=== PATIENT | male | born 1990 | race Two or more races ===

== ENCOUNTER 2024-12-12 07:04 | Emergency (ER) | payer MEDICAID, SELFPAY ==
[2024-12-12 07:04] VITALS: BMI 27.3
[2024-12-12 07:23] VITALS: BP 158/99; PULSE 85; RESP 18; TEMP 36.6; O2SAT 99; BMI 30.9
--- NOTE | 2024-12-12 07:28 | EDNOTE_ITS ---
ED Back Injury Pain RME/HPI General Chief Complaint: Back Pain/Injury Stated Complaint: LOWER BACK PAIN SINCE YESTERDAY Time Seen by Provider: 12/12/24 07:13 Arrival date/time: 12/12/24 07:04 This is a 34-year-old male that comes in with complaints of lower back pain. Patient states lower back pain started yesterday when he was at his friend's house. Patient states he was sitting down and was wanting to stand up. Patient states that his back started hurting then. Patient denies any trauma patient denies any falls. Patient denies any numbness tingling. Patient denies any loss of bowel or bladder control. Patient denies any dysuria. Patient does have history of kidney stones in the past. Patient states his pain radiates down his right leg. Patient does have history of herniated disc. Related Data Previous Rx's ?Medication ?Instructions ?Recorded tamsulosin 0.4 mg capsule 0.4 mg PO QDAY #7 caps 01/24 cyclobenzaprine 10 mg tablet 10 mg PO BID #20 tabs 11/03 ibuprofen 800 mg tablet 800 mg PO Q6H PRN pain #14 t abs 12/12/24 Allergies Allergy/AdvReac Type Severity Reaction Status Date / Time No Known Allergies Allergy Verified 12/12/24 07:04 Course Orders Category Date Time Status CT lumbar spine wo con Stat Exams 12/12/24 09:06 Completed Urinalysis, C/S if Indicated Stat Lab 12/12/24 08:05 Completed CYCLObenzaPRINE [Flexeril] Med 12/12/24 07:27 Discontinued 5 mg PO X1 ONE HYDROcodone*/APAP 5/325 [[place] 5/325] Med 12/12/24 07:27 Discontinued 2 tab PO X1 ONE HYDROmorphone INJ [Dilaudid Inj] Med 12/12/24 09:05 Discontinued 1 mg IM X1 ONE Ketorolac Inj [Toradol Inj] Med 12/12/24 07:27 Discontinued 60 mg IM X1 ONE Metoclopramide Inj [Reglan Inj] Med 12/12/24 09:05 Discontinued 10 mg IM X1 ONE Vital Signs Vital signs: Vital Signs Temperature 97.8 F 12/12/24 07:23 Pulse Rate 85 12/12/24 07:23 Respiratory Rate 18 12/12/24 07:23 Blood Pressure 158/99 H 12/12/24 07:23 Pulse Oximetry (%) 99 12/12/24 07:23 Oxygen Delivery Method Room Air 12/12/24 07:23 Back Pain / Injury MDM Narrative MDM Narrative:: ct lumbar spine: Findings: Adequate alignment lumbar vertebral bodies No lumbar fracture No spondylolisthesis No significant lumbar disc narrowing. Lumbar pedicles, laminae, transverse and posterior spinous processes intact L5-S1 2 mm central lumbar disc bulge L4-L5 3 mm central lumbar disc bulge L3-L4 no disc protrusion L2-L3 no disc protrusion L1-L2 no disc protrusion IMPRESSION: No lumbar fracture or significant lumbar disc narrowing L5-S1, L4-L5 minor central lumbar disc bulges today patient had Ct scan There was no acute fracture seen. Exam appeared unremarkable. I explained to patient at length that if there was continued pain to this area or worsened to come back to ED or see primary provider for more xrays or further testing such as CT scan or MRI. CT scans are not perfect and sometimes serial films needed. Patient verbalized understanding. Patient states they will follow up with primary provider in 1-2 days or come back to ED if symptoms change or worsen. If low back pain persists, consider correlation with MRI lumbar spine without contrast follow-up Follow up with primary provider in 1-2 days. Come back to ED if symptoms change or worsen Will treat for back pain. hx of bulging disc in the past. Patient pain is significantly improved. Stable for discharge, Return to ED precautions given. Medications / Prescriptions Medication administrations:: Medication Administration History Discontinued Medications Hydrocodone Bitart/Acetaminophen (Hydrocodone/Apap 5/325 Tablet) 2 tab PO X1 ONE Stop: 12/12/24 07:28 Last Admin: 12/12/24 07:33 Dose: 2 tab Documented By: DAVIDE Cyclobenzaprine HCl (Cyclobenzaprine 5 Mg Tablet) 5 mg PO X1 ONE Stop: 12/12/24 07:28 Last Admin: 12/12/24 07:33 Dose: 5 mg Documented By: DAVIDE Hydromorphone HCl (Hydromorphone Inj 2 Mg/Ml Vial) 1 mg IM X1 ONE Stop: 12/12/24 09:06 Last Admin: 12/12/24 09:17 Dose: 1 mg Documented By: [facility] Ketorolac Tromethamine (Ketorolac Inj 60 Mg/2 Ml Vial) 60 mg IM X1 ONE Stop: 12/12/24 07:28 Last Admin: 12/12/24 07:34 Dose: 60 mg Documented By: DAVIDE Metoclopramide HCl (Metoclopramide Inj 5 Mg/Ml Vial 2 Ml) 10 mg IM X1 ONE; Protocol Stop: 12/12/24 09:06 Last Admin: 12/12/24 09:16 Dose: 10 mg Documented By: [facility] Discharge Plan Plan Patient Disposition: HOME (Self Care) Patient condition on transfer: Stable Prescriptions/Referrals Prescriptions/Med Rec: New cyclobenzaprine 10 mg tablet 10 mg PO BID Qty: 20 0RF ibuprofen 800 mg tablet 800 mg PO Q6H PRN (Reason: pain) Qty: 14 0RF No Action tamsulosin 0.4 mg capsule 0.4 mg PO QDAY Qty: 7 0RF Referrals: No Primary/Family,Physician [Primary Care Provider] - In 1 week Problem List Clinical Impression: Back pain Patient/Caregiver Discharge Instructions Discharge Activity: activity as tolerated Education Materials: ED Back Pain (Acute or Chronic) Additional Instructions: Findings: Adequate alignment lumbar vertebral bodies No lumbar fracture No spondylolisthesis No significant lumbar disc narrowing. Lumbar pedicles, laminae, transverse and posterior spinous processes intact L5-S1 2 mm central lumbar disc bulge L4-L5 3 mm central lumbar disc bulge L3-L4 no disc protrusion L2-L3 no disc protrusion L1-L2 no disc protrusion IMPRESSION: No lumbar fracture or significant lumbar disc narrowing L5-S1, L4-L5 minor central lumbar disc bulges If low back pain persists, consider correlation with MRI lumbar spine without contrast follow-up Follow up with primary provider in 1-2 days. Come back to ED if symptoms change or worsen Print Language: Citizen Of [place] Stand Alone Forms: Tran Award Info., Patient Portal Info Letter PA/DEVELOPER ANALYST Supervising Physician PA/DEVELOPER ANALYST Supervising Physician: jill
[2024-12-12] MEDS: CYCLObenzaPRINE 5 MG TABLET PO (07:33)
[2024-12-12] MEDS: HYDROcodone/APAP 5/325 TABLET 2 TAB PO (07:33)
[2024-12-12] MEDS: KETOROLAC INJ 60 MG/2 ML VIAL IM (07:34)
[2024-12-12 08:11] LABS: Collection Type, Urine Voided
[2024-12-12 08:34] LABS: Bilirubin,Urine Negative (Negative); Blood,Urine Negative (Negative); Clarity,Urine Clear (Clear/Hazy); Color,Urine Yellow (Lt Yel-Yel); Culture Indicated,Urine Not Indicated; Glucose, Urine Negative (Negative); Ketones,Urine Negative (Negative); Leukocyte Esterase,Urine Negative (Negative); Nitrite,Urine Negative (Negative); PH,Urine 6.5 (5.0-7.0); Protein,Urine Trace (Neg - Trace); RBC,Urine 2 /hpf (0-3); Specific Gravity,Urine 1.027 (1.001-1.035); Squamous Epithelial Cell,Urine < 1 /hpf (0-5); Urobilinogen,Urine Negative mg/dL (0.0-1.0); WBC,Urine 1 /hpf (0-5)
--- NOTE | 2024-12-12 09:06 | XR_ITS ---
Examination: CT lumbar spine, without contrast. 2-D sagittal reconstructions. 2-D coronal reconstructions. 3-D reconstructions. Date and time of exam:December 12, 2024 0945 hours INDICATIONS: Low back pain beginning yesterday, history chronic low back pain years CTDI: vol (mGy):22.6 DLP: (mGycm):759 Technique: Multiple 1.25 mm axial sections of the lumbar spine without intravenous contrast have been obtained. 2-D sagittal and coronal reconstructions have been obtained. 3-D reconstructions have been obtained. Low dose protocols were performed. One or more of the following dose reduction techniques were used; automated exposure control, adjustment of the mA and/or KV according to patient size, use of iterative reconstruction technique. Findings: Adequate alignment lumbar vertebral bodies No lumbar fracture No spondylolisthesis No significant lumbar disc narrowing. Lumbar pedicles, laminae, transverse and posterior spinous processes intact L5-S1 2 mm central lumbar disc bulge L4-L5 3 mm central lumbar disc bulge L3-L4 no disc protrusion L2-L3 no disc protrusion L1-L2 no disc protrusion IMPRESSION: No lumbar fracture or significant lumbar disc narrowing L5-S1, L4-L5 minor central lumbar disc bulges If low back pain persists, consider correlation with MRI lumbar spine without contrast follow-up
[2024-12-12] MEDS: METOCLOPRAMIDE INJ 5 MG/ML VIAL 2 ML 10 MG IM (09:16)
[2024-12-12] MEDS: HYDROmorphone INJ 2 MG/ML VIAL 1 MG IM (09:17)
[2024-12-12 10:18] VITALS: BP 151/90; PULSE 82; RESP 17; TEMP 36.8; O2SAT 99
== END 2024-12-12 10:15 | disposition home or self-care (01) ==
PROVIDERS: Nurse Practitioner Family; Emergency Provider Emergency Medicine
DX: M51.370 Other intervertebral disc degeneration, lumbosacral region with discogenic back pain only (principal); M51.360 Other intervertebral disc degeneration, lumbar region with discogenic back pain only
CPT/HCPCS: 72131; 81001; 96372; 99284; J1171; J1885; J2765; A9270